=== PATIENT | female | born 1995 | race American Indian/Alaskan Native ===

== ENCOUNTER 2019-05-25 12:52 | Emergency (ER) | payer MEDICAID ==
[2019-05-25 13:02] VITALS: BP 121/72
[2019-05-25] MEDS ORDERED: IBUPROFEN 600 MG TAB PO ONE (13:55)
--- NOTE | 2019-05-25 13:55 | Event Note ---
ED Screening Note Date of service: 05/25/19 Time: 13:53 ED Screening Note: 24 y o Female presents to ED cc of URI with chest pain and persistent cough, fever with body aches x 1 week with no relief of otc meds cc of sob This initial assessment/diagnostic orders/clinical plan/treatment(s) is/are subject to change based on patients health status, clinical progression and re- assessment by fellow clinical providers in the ED. Further treatment and workup at subsequent clinical providers discretion. Patient/guardian urged not to elope from the ED as their condition may be serious if not clinically assessed and managed. Initial orders include: cxr motrin in triage acc eval
--- NOTE | 2019-05-25 14:23 | XRay Report ---
CHEST 2 VIEWS INDICATION / CLINICAL INFORMATION: cough,fever. COMPARISON: None available. FINDINGS: SUPPORT DEVICES: None. HEART / MEDIASTINUM: No significant abnormality. LUNGS / PLEURA: No significant pulmonary or pleural abnormality. No pneumothorax. ADDITIONAL FINDINGS: No significant additional findings. IMPRESSION: 1. No acute findings. Signer Name: Cirilo Gerard MD Signed: 05/25/2019 2:18 PM Workstation Name: [id number]
== END 2019-05-25 17:34 | disposition left against medical advice (07) ==
LOC: EDSEX → ED 12:52
DX: J06.9 Acute upper respiratory infection, unspecified (principal); Z53.21 Procedure and treatment not carried out due to patient leaving prior to being seen by health care provider
CPT/HCPCS: 71046